=== PATIENT | female | born 1995 | race Native Hawaiian/Other Pacific Islander ===

== ENCOUNTER 2018-05-30 21:54 | Emergency (ER) | payer OTHER ==
[~2018-05-30] VITALS: Ht 160 cm; Wt 85.3 kg
[2018-05-30 23:43] VITALS: BP 118/88; TEMP 98.2
== END 2018-05-30 23:44 | disposition home or self-care (01) ==
LOC: ED 21:54
DX: S83.8X1A Sprain of other specified parts of right knee, initial encounter (principal)
CPT/HCPCS: 99283

== ENCOUNTER 2018-08-25 16:31 | Emergency (ER) | payer OTHER ==
[~2018-08-25] VITALS: Ht 160 cm; Wt 85.3 kg
[2018-08-25 16:43] VITALS: BP 136/80; TEMP 98.5
== END 2018-08-25 17:10 | disposition home or self-care (01) ==
LOC: ED 16:31
DX: T23.132A Burn of first degree of multiple left fingers (nail), not including thumb, initial encounter (principal); T31.0 Burns involving less than 10% of body surface; X12.XXXA Contact with other hot fluids, initial encounter; Y92.89 Other specified places as the place of occurrence of the external cause
CPT/HCPCS: 99282

== ENCOUNTER 2018-12-04 22:36 | Emergency (ER) | payer OTHER ==
[~2018-12-04] VITALS: Ht 160 cm; Wt 77.1 kg
[2018-12-05 01:29] VITALS: BP 137/67; TEMP 98.1
== END 2018-12-05 01:29 | disposition home or self-care (01) ==
LOC: ED 22:36
DX: H61.21 Impacted cerumen, right ear (principal)
CPT/HCPCS: 99283

== ENCOUNTER 2020-12-08 01:20 | Emergency (ER) | payer OTHER ==
[~2020-12-08] VITALS: Ht 160 cm; Wt 81.6 kg
[2020-12-08 04:08] VITALS: BP 140/87; TEMP 99
== END 2020-12-08 04:08 | disposition home or self-care (01) ==
LOC: ED 01:20
DX: N39.0 Urinary tract infection, site not specified (principal); S39.012A Strain of muscle, fascia and tendon of lower back, initial encounter; X58.XXXA Exposure to other specified factors, initial encounter; Y92.89 Other specified places as the place of occurrence of the external cause
CPT/HCPCS: 36415; 81000; 81025; 87077; 87086; 87088; 87186; 96372; 99283; J1170; J1885

== ENCOUNTER 2022-05-16 07:55 | Outpatient (CLI) | payer OTHER | END 2022-05-16 19:21 | disposition home or self-care (01) | LOC: RAD 07:55 | PROVIDERS: ATTEND Registered Nurse | DX: M54.59 Other low back pain (principal) ==